=== PATIENT | male | born 1955 | race Caucasian/White ===

== ENCOUNTER 2019-04-15 05:14 | Day surgery (SDC) | payer OTHER ==
[2019-04-14 16:31] LABS: BASOPHILS # (AUTO) 0.1 X10'3 (0-0.2); BASOPHILS % (AUTO) 0.8 % (0-1); EOSINOPHILS # (AUTO) 0.3 X10'3 (0-0.9); EOSINOPHILS % (AUTO) 3.1 % (0-6); LYMPHOCYTES # (AUTO) 3.4 X10'3 (1.1-4.8); LYMPHOCYTES % (AUTO) 32.5 % (21-51); MEAN CORPUSCULAR HEMOGLOBIN 33.4 PG (27.0-31.0); MEAN CORPUSCULAR HGB CONC 34.4 g/dL (33.0-36.5); MEAN PLATELET VOLUME 8.6 FL (7.4-10.4); MONOCYTES # (AUTO) 0.8 X10'3 (0-0.9); MONOCYTES % (AUTO) 8.1 % (2-12); NEUTROPHILS # (AUTO) 5.7 X10'3 (1.8-7.7); NEUTROPHILS % (AUTO) 55.5 % (42-75); PRE OP HEMATOCRIT 48.9 % (42.0-52.0); PRE OP HEMOGLOBIN 16.8 g/dL (14.0-17.9); PRE OP PLATELET COUNT 227 X10'3 (140-440); RED BLOOD COUNT 5.03 X10'6 (4.70-6.10); RED CELL DISTRIBUTION WIDTH 13.3 % (11.5-14.5)
[2019-04-14 16:49] LABS: ALBUMIN/GLOBULIN RATIO 1.1 (1.1-1.5); ALKALINE PHOSPHATASE 85 IU/L (46-116); BLOOD UREA NITROGEN 17 MG/DL (7-18); BUN/CREATININE RATIO 18.5 (5.4-32.0); CALCIUM 8.8 MG/DL (8.5-10.1); CHLORIDE 105 MMOL/L (99-107); CREATININE 0.92 MG/DL (0.60-1.10); PRE OP ALT 33 U/L (30-65); PRE OP ANION GAP 13 (8-16); PRE OP AST 16 U/L (10-37); PRE OP BILIRUB, TOTAL 0.3 MG/DL (0.0-1.0); PRE OP GLUCOSE 86 MG/DL (70-104); PRE OP SODIUM 143 MMOL/L (135-145); TOTAL CARBON DIOXIDE 25.4 MMOL/L (24-32); TOTAL PROTEIN 7.6 G/DL (6.4-8.2); eGFR 83 ML/MIN
[2019-04-14 16:50] LABS: PRE OP PROTIME 10.7 SECONDS (9.0-12.0)
[2019-04-15] VITALS (9 sets, daily range): BP systolic 108–149; BP diastolic 76–94
[~2019-04-15] VITALS: Ht 175.3 cm; Wt 92.1 kg
[~2019-04-15 05:14] MED LIST: METO-539 PO; OXYC5CAP19 PO; ringers solution, lacted 1,000 ML IV SCH
[2019-04-15] MEDS ORDERED: cefazolin/dext.iso 2gm/100 ML IV ONE (05:29)
[2019-04-15] MEDS ORDERED: famotidine 20mg tablet PO ONE (05:30)
[2019-04-15] MEDS ORDERED: DOCUMENT DATE & TIME OF BETA-BLOCKER PO ONE (05:30)
[2019-04-15] MEDS ORDERED: LIDOcaine 1% (10mg/ml) 2ml vial ONE (05:59)
[2019-04-15] MEDS ORDERED: ROPIVAcaine 0.5% (5mg/ml) 30ml vial ONE ×2 (06:42)
[2019-04-15] MEDS ORDERED: ketorolac trometh. 30mg/ml inj. ONE (06:42)
[2019-04-15] MEDS ORDERED: ePHEDrine 50MG/ML INJ. ONE (07:08)
[2019-04-15] MEDS ORDERED: sevoflurane 250ml liquid IH ONE (07:08)
[2019-04-15] MEDS ORDERED: midazolam 2 mg/2 ml injection ONE ×2 (07:17→07:18)
[2019-04-15] MEDS ORDERED: fentaNYL/PF 50MCG/1 ML 2ML syringe ONE (07:17)
[2019-04-15] MEDS ORDERED: ringers solution, lacted 1,000 ML IV SCH (08:27)
[2019-04-15] MEDS ORDERED: ondansetron/PF 4mg/2ml inj IV PRN (08:30)
[2019-04-15] MEDS ORDERED: morphine 4 MG/ML inj SYRINge IV PRN ×2 (08:30)
[2019-04-15] MEDS ORDERED: meperidine/PF 25mg/ml syringe IV PRN ×2 (08:30)
[2019-04-15] MEDS ORDERED: proCHLORperazine 10 MG/2 ml inj IV PRN (08:30)
[2019-04-15] MEDS ORDERED: propofol inj 20 ML IV ONE (08:31)
[2019-04-15] MEDS ORDERED: dexamethasone sod phosphate 4mg/ml inj. ONE (08:31)
[2019-04-15] MEDS ORDERED: ondansetron/PF 4mg/2ml inj ONE (08:31)
[2019-04-15] MEDS ORDERED: LIDOcaine 2% (20mg/ml) 5ml vial ONE (08:31)
--- NOTE | 2019-04-15 09:00 | NUR ---
Received from OR via BED, accompanied by Anesthesiologist DR Pitts report given by Anesthesiolgist. PATIENT A&OX4, DENIES PAIN, V/S WNL, NEUROVASCULAR CHECKS INTACT, 20G PIV RUE, SCD ON, DRESSING TO LEFT ARM CDI ELEVATED WITH ICEBAG APPLIED SLING ON.
[2019-04-15] MEDS: meperidine/PF 25mg/ml syringe IV PRN ×3 (09:01→09:17)
--- NOTE | 2019-04-15 09:02 | NUR ---
demerol 25mg given iv on admission per order from Dr. Mullins
--- NOTE | 2019-04-15 09:04 | NUR ---
PATIENT WAKING UP PAINFULL NOW SEE EMAR
[2019-04-15] MEDS ORDERED: HYDROcodone/acetaminophen 10/325mg tab PO PRN (09:10)
--- NOTE | 2019-04-15 10:10 | NUR ---
PATIENT A&OX4, STATES PAIN WELL CONTROLLED NOW, V/S WNL, NEUROVASCULAR CHECKS INTACT, 20G PIV D/C, SCD OFF, DRESSING TO LEFT ARM CDI ELEVATED WITH ICEBAG APPLIED SLING ON. I HAVE REVIEWED D/C INSTRUCTIONS WITH PATIENT AND FAMILY AND THEY HAVE VERBALIZED UNDERSTANDING. PATIENT D/C HOME WITH ALL BELONGINGS AND FAMILY GAVE TRANSPORT HOME.
== END 2019-04-15 10:10 | disposition home or self-care (01) ==
LOC: PAS 05:14
PROVIDERS: ATTEND Orthopaedic Surgery
DX: S46.112A Strain of muscle, fascia and tendon of long head of biceps, left arm, initial encounter (principal); M75.22 Bicipital tendinitis, left shoulder; I10 Essential (primary) hypertension; K21.9 Gastro-esophageal reflux disease without esophagitis; G89.29 Other chronic pain; G89.18 Other acute postprocedural pain; F17.210 Nicotine dependence, cigarettes, uncomplicated; Z86.19 Personal history of other infectious and parasitic diseases; Z98.890 Other specified postprocedural states; Z79.899 Other long term (current) drug therapy; Z88.5 Allergy status to narcotic agent; Z79.01 Long term (current) use of anticoagulants; X58.XXXA Exposure to other specified factors, initial encounter; Y93.89 Activity, other specified; Y92.89 Other specified places as the place of occurrence of the external cause; Y99.8 Other external cause status
CPT/HCPCS: 24342; 36415; 64415; 80053; 82948; 85025; 85610; 85730; C1713; J1100; J1885; J2001; J2175; J2250; J2270; J2405; J2704; J3010; J7120; A4565; A4618; A6449; A7000; J2795